=== PATIENT | male | born 1985 | race Caucasian/White ===

== ENCOUNTER 2017-08-11 10:40 | Emergency (ER) | payer BC, OTHER ==
[~2017-08-11] VITALS: Ht 182.9 cm; Wt 34.2 kg
[2017-08-11 10:50] VITALS: BP 123/60
--- NOTE | 2017-08-11 18:10 | ECGEPIP ---
Stationary ECG Study [facility] - ED Test Date: 2017-08-11 Pat Name: EAN MANDUJANO Department: Room: - Gender: M [employer] Department: : 1985 Requested By: Cher Norman Order Number: [id number] Reading MD: Gloria Roque Measurements Intervals [place] Rate: 51 P: 9 FL: 139 QRS: 34 QRSD: 103 T: 46 QT: 399 QTc: 370 Interpretive Statements SINUS BRADYCARDIA NO PRIOR FOR COMPARISON Electronically Signed On 08-11-2017 18:10:04 EST by Gloria Roque
== END 2017-08-11 11:50 | disposition home or self-care (01) ==
LOC: M ED 10:40 → EDBD 10:40 → M ED 11:50
DX: R55 Syncope and collapse (principal); R00.1 Bradycardia, unspecified

== ENCOUNTER → 2017-10-10 | Outpatient (REF) | payer BC, OTHER | LOC: M LAB REF 22:06 | DX: J11.1 Influenza due to unidentified influenza virus with other respiratory manifestations (principal) | CPT/HCPCS: 87430 ==

== ENCOUNTER → 2019-07-13 | Outpatient (REF) | payer OTHER | LOC: M LAB REF 12:09 | PROVIDERS: ATTEND Nurse Practitioner Family | DX: J02.9 Acute pharyngitis, unspecified (principal) ==

== ENCOUNTER 2022-08-10 09:55 | Emergency (ER) | payer OTHER ==
[~2022-08-10] VITALS: Ht 182.9 cm; Wt 84.2 kg
[2022-08-10] MEDS ORDERED: NS 1,000 ML IV ONE (10:10)
[2022-08-10 10:19] LABS: HEMATOCRIT 36.2 % (42.0-52.0); HEMOGLOBIN 12.2 g/dl (13.5-17.5); MEAN CORPUSCULAR HEMOGLOBIN 31.3 pg (27.0-33.0); MEAN CORPUSCULAR HGB CONC 33.7 g/dl (32.0-36.5); MEAN CORPUSCULAR VOLUME 92.8 fl (80.0-96.0); PLATELET COUNT, AUTOMATED 139 10^3/uL (150-450)
[2022-08-10 11:04] LABS: BLOOD UREA NITROGEN 11 MG/DL (9-23); CALCIUM LEVEL 7.6 MG/DL (8.5-10.1); CARBON DIOXIDE LEVEL 28 MMOL/L (20-31); CHLORIDE LEVEL 102 MMOL/L (98-107); CREATININE FOR GFR 0.95 MG/DL (0.70-1.30); GLOMERULAR FILTRATION RATE > 60.0 (>60); GLUCOSE, FASTING 130 MG/DL (60-100); POTASSIUM SERUM 4.1 MMOL/L (3.5-5.1); SODIUM LEVEL 137 MMOL/L (136-145)
[2022-08-10 11:19] VITALS: BP 132/67; O2SAT 100
== END 2022-08-10 11:33 | disposition home or self-care (01) ==
LOC: EDBD 09:55 → M ED 09:55
DX: R55 Syncope and collapse (principal)